=== PATIENT | male | born 1975 | race Two or more races ===

== ENCOUNTER 2021-12-26 08:42 | Outpatient (CLI) | payer OTHER | END 2021-12-26 08:50 | disposition home or self-care (01) | LOC: RAD 08:42 | PROVIDERS: ATTEND General Practice | DX: R06.02 Shortness of breath (principal) ==

== ENCOUNTER 2024-08-04 15:42 | Emergency (ER) | payer OTHER ==
[~2024-08-04] VITALS: Ht 182.9 cm; Wt 86.2 kg
[2024-08-04 16:18] VITALS: BP 138/97; O2SAT 99
[2024-08-04] MEDS ORDERED: FAMOtidine 10 MG/ML (4ML VIAL) IV ONE (16:45)
[2024-08-04] MEDS ORDERED: KETOROLAC TROMETHAMINE 60 MG VIAL IM ONE (16:45)
[2024-08-04] MEDS ORDERED: CEFTRIAXONE SODIUM 1,000 MG VIAL IV ONE (16:45)
[2024-08-04] MEDS ORDERED: 0.9 % SODIUM CHLORIDE 1,000 ML IV ONE (16:45)
[2024-08-04] MEDS ORDERED: TAMSULOSIN HCL 0.4 MG CAP PO ONE (16:45)
[2024-08-04 17:13] LABS: HEMATOCRIT 42.8 % (39.0-48.0); HEMOGLOBIN 14.7 g/dL (13-16.00); MEAN CORPUSCULAR HEMOGLOBIN 30.6 pg (27.00-32.0); MEAN CORPUSCULAR HGB CONC 34.4 g/dl (32.0-36.0); PLATELET COUNT 176 K/uL (150-450); RED BLOOD COUNT 4.81 M/uL (4.00-6.00); RED CELL DISTRIBUTION WIDTH 13.7 % (11.5-14.5)
[2024-08-04 17:33] LABS: INR 1.04; PARTIAL THROMBOPLASTIN TIME 31.2 SECONDS (22.0-34.0); PROTHROMBIN TIME 11.3 SECONDS (9.0-11.5)
[2024-08-04 17:37] LABS: ALBUMIN 4.8 gm/dL (3.4-5.0); BILIRUBIN TOTAL 1.13 mg/dL (0.3-1.2); CALCIUM 9.8 mg/dL (8.5-10.1); CREATININE SERUM 1.42 mg/dL (0.70-1.30); GFR 53.44; GLOBULINA 3.5 G/DL (2.4-3.5); POTASSIUM 4.03 mEq/L (3.5-5.1); TOTAL PROTEIN 8.3 gm/dL (6.4-8.2)
[2024-08-04 20:41] LABS: PH,URINE 5.5 (5.0-8.0); URINE APPEARANCE Turbid; URINE BILIRRUBIN Negative (NEGATIVE); URINE BLOOD Large; URINE COLOR Dark Yellow; URINE GLUCOSE Negative (NEGATIVE); URINE KETONE 15 (NEGATIVE); URINE LEUKOCYTE Trace; URINE NITRATE Negative; URINE PROTEIN 30 (NEGATIVE)
[2024-08-04 20:42] LABS: URINE CAST 2.44 uL (0.0-1.40); URINE EPITHELIAL CELLS 14.8 uL (0.0-38.8); URINE RBC 444.7 uL (0.0-20.8); URINE WBC 22.7 uL (0.0-23.2)
[2024-08-04] MEDS ORDERED: PEPCID AC20 MG PO (21:06)
[2024-08-04] MEDS ORDERED: TAMS0.4C PO (21:06)
[2024-08-04] MEDS ORDERED: ZOFRAN8 MG PO (21:06)
[2024-08-04] MEDS ORDERED: BACTRIM DS TAB1 EACH PO (21:06)
[2024-08-04] MEDS ORDERED: KETO10TA2 PO (21:07)
[2024-08-04] MEDS ORDERED: KETOROLAC TROMETHAMINE 30 MG VIAL IM ONE (21:15)
[2024-08-04 21:27] LABS: URINE CRYSTALS MODERATE /HPF; URINE SPERM FEW
[2024-08-04 21:28] LABS: URINE MUCUS MODERATE
== END 2024-08-04 21:42 | disposition home or self-care (01) ==
LOC: ER 15:43
PROVIDERS: General Practice
DX: R10.31 Right lower quadrant pain (principal); N20.9 Urinary calculus, unspecified; R10.9 Unspecified abdominal pain
CPT/HCPCS: 36415; 74177; Q9965

== ENCOUNTER → 2025-01-28 | Emergency (ER) | payer OTHER ==
[~2025-01-28] VITALS: Ht 182.9 cm; Wt 86.2 kg
[~2025-01-28] MED LIST: BACTRIM DS TAB1 EACH PO; KETO10TA2 PO; KETOROLAC TROMETHAMINE 60 MG VIAL IM ONE; PEPCID AC20 MG PO; TAMS0.4C PO; ZOFRAN8 MG PO
== END | disposition home or self-care (01) ==
LOC: ER 12:55
DX: M94.0 Chondrocostal junction syndrome [Tietze] (principal)

== ENCOUNTER 2025-02-09 20:26 | Emergency (ER) | payer OTHER ==
[~2025-02-09] VITALS: Ht 170.2 cm; Wt 83.9 kg
[~2025-02-09 20:26] MED LIST changes: -KETOROLAC TROMETHAMINE 60 MG VIAL IM ONE
[2025-02-09 23:24] LABS: HEMATOCRIT 38.9 % (39.0-48.0); HEMOGLOBIN 13.6 g/dL (13-16.00); MEAN CELL VOLUME 88.9 fL (80.0-100.00); MEAN CORPUSCULAR HEMOGLOBIN 31.2 pg (27.00-32.0); MEAN CORPUSCULAR HGB CONC 35.1 g/dl (32.0-36.0); PLATELET COUNT 232 K/uL (150-450); RED BLOOD COUNT 4.37 M/uL (4.00-6.00); RED CELL DISTRIBUTION WIDTH 14.4 % (11.5-14.5)
[2025-02-09 23:45] LABS: INR 0.98; PARTIAL THROMBOPLASTIN TIME 31.5 SECONDS (22.0-34.0); PROTHROMBIN TIME 10.7 SECONDS (9.0-11.5)
[2025-02-09 23:49] LABS: CALCIUM 8.8 mg/dL (8.5-10.1); CREATININE SERUM 0.84 mg/dL (0.70-1.30); GFR 97.53; POTASSIUM 3.48 mEq/L (3.5-5.1)
[2025-02-10 00:35] LABS: INFLUENZA A AG NEGATIVE (NEGATIVE)
[2025-02-10 00:36] LABS: COVID-19 AG NEGATIVE (NEGATIVE)
== END 2025-02-10 00:46 | disposition home or self-care (01) ==
LOC: ER 20:26
PROVIDERS: Emergency Medicine
DX: R07.9 Chest pain, unspecified (principal); Z20.822 Contact with and (suspected) exposure to COVID-19